=== PATIENT | male | born 1945 | race Two or more races ===

== ENCOUNTER → 2017-09-12 | Day surgery (SDC) | payer OTHER | END | disposition home or self-care (01) | LOC: ADM 09-10 15:30 → AMB-ENDOS 08:35 → CIR.AMB 15:30 → AMB-ENDOS 15:30 | DX: K57.30 Diverticulosis of large intestine without perforation or abscess without bleeding (principal); K64.1 Second degree hemorrhoids ==

== ENCOUNTER 2017-10-15 09:15 | Inpatient (IN) | payer OTHER ==
[~2017-10-15] VITALS: Ht 160 cm; Wt 98.4 kg
[2017-10-16] MEDS ORDERED: ASPIRIN EC81 MG PO (14:17)
[2017-10-16] MEDS ORDERED: LOSARTAN-HCTZ1 EACH PO (14:18)
[2017-10-16] MEDS ORDERED: ACID CONTROLLER20 MG PO (14:19)
[2017-10-16] MEDS ORDERED: METOPROLOL SUCC25 MG PO (14:19)
[2017-10-16] MEDS ORDERED: METFORMIN HCL500 MG PO (14:19)
[2017-10-16] MEDS ORDERED: AMIODARONE HCL200 MG PO (14:20)
== END 2017-10-30 21:39 | disposition home or self-care (01) | DRG 330 ==
LOC: SURH 10-21 08:28 → O/R 10-21 08:28 → SURG 10-21 08:28 → SURH 10-21 18:51 → O/R 10-21 18:51 → SURG 10-21 18:54 → SURH 10-21 18:54 → SURG 10-21 20:35 → SURH 10-22 11:29
PROVIDERS: Colon & Rectal Surgery
PROC: 0DNL0ZZ Release Transverse Colon, Open Approach (ICD-10-PCS; 2017-10-21)
PROC: 0DQN0ZZ Repair Sigmoid Colon, Open Approach (ICD-10-PCS; 2017-10-21)
PROC: 0DTU0ZZ Resection of Omentum, Open Approach (ICD-10-PCS; 2017-10-21)
PROC: 0DQ80ZZ Repair Small Intestine, Open Approach (ICD-10-PCS; 2017-10-21)
PROC: 0DJD4ZZ Inspection of Lower Intestinal Tract, Percutaneous Endoscopic Approach (ICD-10-PCS; 2017-10-21)
PROC: 0BH17EZ Insertion of Endotracheal Airway into Trachea, Via Natural or Artificial Opening (ICD-10-PCS; 2017-10-21)
PROC: 5A1935Z Respiratory Ventilation, Less than 24 Consecutive Hours (ICD-10-PCS; 2017-10-21)
PROC: 4A12X4Z Monitoring of Cardiac Electrical Activity, External Approach (ICD-10-PCS; 2017-10-21)
PROC: 4A033R1 Measurement of Arterial Saturation, Peripheral, Percutaneous Approach (ICD-10-PCS; 2017-10-21)
PROC: 0DTN0ZZ Resection of Sigmoid Colon, Open Approach (ICD-10-PCS; principal; 2017-10-21 09:00)
PROC: 3E0F7GC Introduction of Other Therapeutic Substance into Respiratory Tract, Via Natural or Artificial Opening (ICD-10-PCS; 2017-10-22)
PROC: 3E0336Z Introduction of Nutritional Substance into Peripheral Vein, Percutaneous Approach (ICD-10-PCS; 2017-10-24)
DX: K57.20 Diverticulitis of large intestine with perforation and abscess without bleeding (principal); K91.72 Accidental puncture and laceration of a digestive system organ or structure during other procedure; E87.2 Acidosis; J95.89 Other postprocedural complications and disorders of respiratory system, not elsewhere classified; G47.33 Obstructive sleep apnea (adult) (pediatric); E11.9 Type 2 diabetes mellitus without complications; I73.89 Other specified peripheral vascular diseases; I11.9 Hypertensive heart disease without heart failure; I87.2 Venous insufficiency (chronic) (peripheral); E66.01 Morbid (severe) obesity due to excess calories